=== PATIENT | male | born 1960 | race Caucasian/White ===

== ENCOUNTER 2018-02-28 14:38 | Emergency (ER) | payer OTHER, MEDICAID ==
[~2018-02-28] VITALS: Ht 167.6 cm; Wt 47.6 kg
[2018-02-28 14:38] VITALS: BP_SYST 117
[~2018-02-28 14:38] MED LIST: BUPR75TA20 PO; CEL20 PO; DIVA500T7 PO; GEMF600T3 PO; INSU100V9 SQ; LISI-600 PO; METH2.5T PO; RABE20TA18 PO; TOPI25TA13 PO; TRAZ-123 PO
[2018-02-28] MEDS ORDERED: NACL 0.9% 1,000 ML IV ONE (15:17)
[2018-02-28 15:30] LABS: BASOPHILS % (AUTO) 0.7 % (0.0-2.0); CALCIUM 8.6 mg/dL (8.4-11.0); CREATININE 1.07 mg/dL (0.55-1.30); EOSINOPHILS # (AUTO) 0.1 K/uL (0.0-0.4); EOSINOPHILS % (AUTO) 1.5 % (0.0-4.0); HEMATOCRIT 39.8 % (36-54); HEMOGLOBIN 13.2 g/dL (14.0-18.0); LYMPHOCYTES # (AUTO) 1.4 K/uL (1.0-5.5); MEAN CORPUSCULAR HEMOGLOBIN 32 pg (27-31); MEAN CORPUSCULAR HGB CONC 33 % (32-36); MEAN CORPUSCULAR VOLUME 97 fL (79.0-98.0); MONOCYTES # (AUTO) 0.8 K/uL (0.0-1.0); MONOCYTES % (AUTO) 13.8 % (1.7-9.3); NEUTROPHILS # (AUTO) 3.4 K/uL (1.8-7.7); PLATELET COUNT (AUTO) 207 K/uL (130-430); POTASSIUM 3.8 mmol/L (3.5-5.1); RED BLOOD CELL COUNT(AUTO) 4.12 MIL/uL (4.2-6.2); RED CELL DISTRIBUTION WIDTH 13.7 % (9.0-15.0); WHITE BLOOD COUNT (AUTO) 5.7 K/uL (4.8-10.8)
[2018-02-28] MEDS ORDERED: MORPHINE 4 MG/ML INJ. SYRINGE IVP ONE (15:30)
[2018-02-28] MEDS ORDERED: ONDANSETRON HCL 4 MG/2 ML VIAL IVP ONE (15:30)
[2018-02-28] MEDS ORDERED: DIPHENHYDRAMINE INJ 50 MG/ML VIAL IVP ONE (15:30)
[2018-02-28 15:36] LABS: ALBUMIN 3.3 g/dL (3.4-4.8); TOTAL BILIRUBIN 0.3 mg/dL (0.0-1.0)
[2018-02-28] MEDS ORDERED: MAGNESIUM CITRATE 300 ML ORAL SOLUTION PO ONE (16:45)
== END 2018-02-28 17:46 | disposition home or self-care (01) ==
LOC: SED 14:38
DX: K59.00 Constipation, unspecified (principal); E11.9 Type 2 diabetes mellitus without complications; K21.9 Gastro-esophageal reflux disease without esophagitis; I10 Essential (primary) hypertension; G40.909 Epilepsy, unspecified, not intractable, without status epilepticus; Z79.899 Other long term (current) drug therapy
CPT/HCPCS: 36415; 74018; 80053; 83690; 85025; 96374; 96375; 99285; J1200; J2270; J2405; J7030

== ENCOUNTER 2021-03-17 18:46 | Inpatient (IN) | payer OTHER, MEDICAID, SELFPAY ==
[~2021-03-17] VITALS: Ht 167.6 cm; Wt 60.0 kg
[~2021-03-17 18:46] MED LIST changes: +AMIT100T2 PO; +ASA81 PO; -BUPR75TA20 PO; +CARV25TA55 PO; -CEL20 PO; +DIVA-74 PO; -DIVA500T7 PO; +ESCI-6 PO; +FERR236T3 PO; +FOLI-43 PO; +GABA-529 PO; -GEMF600T3 PO; +HYDR-4272 PO; -INSU100V9 SQ; -LISI-600 PO; +LOPE2CAP PO; +MECL-160 PO; -METH2.5T PO; +NIFE30TA84 PO; +NITSL SL; +OMEP20CA15 PO; -RABE20TA18 PO; +SSREG SUBCUT; -TOPI25TA13 PO; -TRAZ-123 PO
[2021-03-17 18:51] VITALS: BP_SYST 103
--- NOTE | 2021-03-17 18:51 | NUR ---
Pt to bed 1 for evaluation. Report given to EDUARDO Sheikh who will assume care.
--- NOTE | 2021-03-17 18:54 | NUR ---
ER Dr. DEVRIES at bedside examining patient.
--- NOTE | 2021-03-17 18:55 | NUR ---
Note undone in EDM - 03/17/21 at 1900 by SDEDCJM # 20 gauge angiocath placed to RT HAND. Use of asceptic technique. Opsite placed over site. Blood return noted. Blood for lab drawn from site. Flushed with 10 cc of normal saline. No evidence of infiltration noted. Patient tolerated well.
--- NOTE | 2021-03-17 18:55 | NUR ---
# 20 gauge angiocath placed to right hand. Use of asceptic technique. Opsite placed over site. Blood return noted. Blood for lab drawn from site. Flushed with 10 cc of normal saline. No evidence of infiltration noted. Patient tolerated well.
--- NOTE | 2021-03-17 18:57 | NUR ---
PATIENT BROUGHT IN BLS FROM [facility] FOR ANEMIA. REPORT FROM EMS, PATIENT HAD DIALYSIS TODAY AND HEMOGLOBIN WAS 5.6. PATIENT ARRIVES WEAK, SLOW TO ANSWER QUESTIONS, SKIN IS PALE. PATIENT AOX3. HX OF ESRD, DM2, HYPERLIPIDEMIA, GERD, HX OF COVID PNA. DENIES ANY PAIN AT THIS TIME.
[2021-03-17 19:28] LABS: BASOPHILS % (AUTO) 0.5 % (0.0-2.0); EOSINOPHILS % (AUTO) 0.2 % (0.0-4.0); LYMPHOCYTES # (AUTO) 1.3 K/uL (1.0-5.5); LYMPHOCYTES % (AUTO) 23.9 % (20.5-51.5); MEAN CORPUSCULAR HEMOGLOBIN 34 pg (27-31); MEAN CORPUSCULAR HGB CONC 34 % (32-36); MEAN CORPUSCULAR VOLUME 100 fL (79.0-98.0); MONOCYTES # (AUTO) 0.9 K/uL (0.0-1.0); MONOCYTES % (AUTO) 16.8 % (1.7-9.3); NEUTROPHILS # (AUTO) 3.1 K/uL (1.8-7.7); NEUTROPHILS % (AUTO) 58.6 % (40.0-70.0); PLATELET COUNT (AUTO) 237 K/uL (130-430); RED CELL DISTRIBUTION WIDTH 17.2 % (9.0-15.0); WHITE BLOOD COUNT (AUTO) 5.2 K/uL (4.8-10.8)
[2021-03-17 19:37] LABS: CALCIUM 8.7 mg/dL (8.4-11.0); CREATININE 2.82 mg/dL (0.55-1.30)
[2021-03-17 19:40] LABS: POTASSIUM 2.8 mmol/L (3.5-5.1)
[2021-03-17 19:45] LABS: INR 1.2 (0.80-1.20); PROTHROMBIN TIME 12.7 SECS (9.5-12.5)
[2021-03-17 19:49] LABS: HEMOGLOBIN 5.8 g/dL (14.0-18.0)
[2021-03-17 19:57] LABS: ALBUMIN 2.2 g/dL (3.4-4.8); TOTAL BILIRUBIN 0.1 mg/dL (0.0-1.0)
[2021-03-17] MEDS ORDERED: POTASSIUM CHLORIDE 20 MEQ/PKT PACKET PO ONE (20:00)
--- NOTE | 2021-03-17 20:01 | NUR ---
PT ARRIVES WITH FULL CODE STATUS
--- NOTE | 2021-03-17 20:11 | NUR ---
BLOOD CONSENT SIGNED BY PATIENT AND MD. TRANSFUSION RECORDS AND CONSENT SENT TO LAB
--- NOTE | 2021-03-17 20:21 | NUR ---
Medication reconciliation completed with information provided by ILDA PUGH. Any prior medication reconciliation on file was reviewed and corrected.
[2021-03-17] MEDS ORDERED: HYDR-4039 PO (20:23)
[2021-03-17] MEDS ORDERED: PSYL575P22 PO (20:23)
[2021-03-17] MEDS ORDERED: ASCO500T20 PO (20:23)
[2021-03-17] MEDS ORDERED: CALC-823 PO (20:23)
[2021-03-17] MEDS ORDERED: FURO-149 PO (20:23)
[2021-03-17] MEDS ORDERED: OLAN10TA71 PO (20:33)
[2021-03-17] MEDS ORDERED: LACT1TAB21 PO (20:33)
[2021-03-17] MEDS ORDERED: BROM3DRO RIGHT EYE (20:33)
[2021-03-17] MEDS ORDERED: PRO40 PO (20:33)
[2021-03-17] MEDS ORDERED: MEGE400O4 PO (20:33)
--- NOTE | 2021-03-17 20:34 | NUR ---
PATIENT AWAKE AND TALKING, PLEASANT. NO VOICED COMPLAINTS AT THIS TIME.
--- NOTE | 2021-03-17 20:53 | NUR ---
Patient will be admitted to care of DR. HARRY. Admitted to MED SURG unit. Will go to room 112B. Belongings list completed. Complete and up to date summary report printed. SBAR GIVEN OVER PHONE
[2021-03-17 21:16] VITALS: BP_SYST 121
--- NOTE | 2021-03-17 21:16 | NUR ---
ADMISSION: The patient, MARK ANTHONY SANTOS, 60 y/o, M admitted by FREDDY HARRY MD, was given written information regarding hospital policies, unit procedures and contact persons. Valuables were checked and DOCUMENTED.
--- NOTE | 2021-03-17 21:30 | NUR ---
INITIAL NOTE AT INITIAL ASSESSMENT, PATIENT IS RESTING IN BED, STABLE, NO SIGNS OF RESPIRATORY DISTRESS. PATIENT VERBALIZES NO PAIN. PLAN OF CARE FOR THE EVENING IS COMMUNICATED WITH THE PATIENT. PATIENT DEMONSTRATES CORRECT USAGE OF CALL LIGHT AT THIS TIME. BED IS LOCKED, ALARMED, AND AT THE LOWEST LEVEL. FALL SAFETY EDUCATION PROVIDED. FALL, SAFETY, AND RESPIRATORY PRECAUTIONS WILL BE TAKEN THROUGHOUT THE SHIFT.
[2021-03-17] MEDS ORDERED: LOPERAMIDE HCL 2 MG CAPSULE PO PRN (22:15)
[2021-03-17] MEDS: CARVEDILOL 25 MG TABLET (COREG) PO SCH (22:15)
[2021-03-17] MEDS ORDERED: cloNIDine HCL 0.1 MG TABLET PO PRN (22:15)
[2021-03-17] MEDS: hydrALAZINE HCL 25 MG TABLET PO SCH (22:15)
[2021-03-17] MEDS ORDERED: NALOXONE HCL 0.4 MG/ML AMP (NARCAN) IVP PRN (22:15)
[2021-03-17] MEDS ORDERED: NITROGLYCERIN 0.4 MG TAB.SUBL SL PRN (22:15)
--- NOTE | 2021-03-17 22:45 | NUR ---
HYGIENE CARE NOTE HYGIENE CARE IS PROVIDED AT THIS TIME, FRESH LINENS PROVIDED, AND PATIENT IS REPOSITIONED FOR COMFORT. PATIENT TOLERATED WELL. CALL LIGHT PLACED WITHIN REACH. BED IS LOCKED, ALARMED, AND AT THE LOWEST LEVEL.
[2021-03-17 23:40] VITALS: BP_SYST 121
--- NOTE | 2021-03-17 23:40 | NUR ---
BT INITIATION: Consent signed per PATIENT agreeing to administration of blood. Blood has been type and crossmatched. Blood sent from blood bank. Information on unit of blood checked against patient wristband at bedside by two nurses. All information matches. Patient or responsible democrat informed of potential complications associated with blood transfusion. Informed of possible transfusion reaction symptoms. Aware of need to notify nurse at once of itching, shortness of breath, flushing, feeling of impending doom, or other symptoms not previously present. Vital signs taken within 5 minutes prior to initiation of transfusion. RN will remain with patient for first 15 minutes of transfusion at which time vital signs will be re-assessed.
--- NOTE | 2021-03-18 02:40 | NUR ---
BT INITIATION: Consent signed per PATIENT agreeing to administration of blood. Blood has been type and crossmatched. Blood sent from blood bank. Information on unit of blood checked against patient wristband at bedside by two nurses. All information matches. Patient or responsible constitution party informed of potential complications associated with blood transfusion. Informed of possible transfusion reaction symptoms. Aware of need to notify nurse at once of itching, shortness of breath, flushing, feeling of impending doom, or other symptoms not previously present. Vital signs taken within 5 minutes prior to initiation of transfusion. RN will remain with patient for first 15 minutes of transfusion at which time vital signs will be re-assessed.
[2021-03-18] MEDS: HYDROcodone/ACETAMIN 5-325 MG TAB (NORCO/ VICODIN) PO PRN ×2 (03:04→21:12)
[2021-03-18] MEDS: hydrALAZINE HCL 25 MG TABLET PO SCH ×3 (05:55→21:11)
[2021-03-18] MEDS: INSULIN REGULAR, HUMAN 100 UNITS/ML, 10 ML VIAL (humuLIN R) SUBCUT PRN ×4 (06:04→22:44)
--- NOTE | 2021-03-18 06:38 | NUR ---
CLOSING NOTE TWO UNITS OF PRBC GIVEN DURING THE SHIFT, PATIENT TOLERATED WELL WITH NO ADVERSE EFFECTS. BLOOD SUGAR CHECK THIS AM REQUIRED INSULIN COVERAGE PER SSI ORDERED BY MD. PATIENT SLEPT WELL THROUGHOUT THE SHIFT, NO SHORTNESS OF BREATH NOTED. AT THIS TIME, PATIENT IS RESTING IN BED, STABLE, NO SIGNS OF RESPIRATORY DISTRESS. CALL LIGHT IS WITHIN REACH. BED IS LOCKED, ALARMED, AND AT THE LOWEST LEVEL. FALL, SAFETY, AND RESPIRATORY PRECAUTIONS HAVE BEEN TAKEN THROUGHOUT THE SHIFT. WILL CONTINUE TO MONITOR UNTIL SHIFT REPORT IS GIVEN AT BEDSIDE TO AM NURSE.
[2021-03-18 07:49] LABS: CALCIUM 8.6 mg/dL (8.4-11.0); CREATININE 3.67 mg/dL (0.55-1.30); POTASSIUM 4.4 mmol/L (3.5-5.1)
[2021-03-18 08:00] VITALS: BP_SYST 144
[2021-03-18 08:23] LABS: BASOPHILS % (AUTO) 0.8 % (0.0-2.0); EOSINOPHILS % (AUTO) 0.4 % (0.0-4.0); HEMATOCRIT 26.9 % (36-54); HEMOGLOBIN 8.8 g/dL (14.0-18.0); LYMPHOCYTES # (AUTO) 1.7 K/uL (1.0-5.5); MEAN CORPUSCULAR HEMOGLOBIN 30 pg (27-31); MEAN CORPUSCULAR HGB CONC 33 % (32-36); MEAN CORPUSCULAR VOLUME 92 fL (79.0-98.0); MONOCYTES # (AUTO) 1.1 K/uL (0.0-1.0); MONOCYTES % (AUTO) 19.2 % (1.7-9.3); NEUTROPHILS # (AUTO) 2.8 K/uL (1.8-7.7); NEUTROPHILS % (AUTO) 49.6 % (40.0-70.0); PLATELET COUNT (AUTO) 214 K/uL (130-430); RED BLOOD CELL COUNT(AUTO) 2.93 MIL/uL (4.2-6.2); RED CELL DISTRIBUTION WIDTH 22.2 % (9.0-15.0); WHITE BLOOD COUNT (AUTO) 5.6 K/uL (4.8-10.8)
[2021-03-18 08:56] LABS: TOTAL IRON BIND. CAPACITY 154 ug/dL (250-450)
[2021-03-18] MEDS: CALCIUM CARBONATE/VITAMIN D3 1 TAB TABLET PO SCH ×2 (09:00→21:08)
[2021-03-18] MEDS: LACTOBACILLUS RHAMNOSUS GG 1 CAP CAPSULE PO SCH ×2 (09:00→21:08)
[2021-03-18] MEDS: PSYLLIUM HUSK 1 PKT PACKET PO SCH (09:00)
[2021-03-18] MEDS ORDERED: [UNRECOGNIZED DRUG - OTHER] PO SCH (09:00)
[2021-03-18] MEDS ORDERED: NON-FORMULARY MEDICATION (Lactobacillus Acidophilus (Acidophilus) 1 TAB) PO SCH (09:00)
--- NOTE | 2021-03-18 09:43 | NUR ---
Nutrition Update Agustin Scale 17 noted. Pt admitted for anemia. Diet: regular, renal BMI: 21.1 kg/m2 RD to follow per nutrition care standards.
[2021-03-18] MEDS: ASPIRIN 81 MG TAB.CHEW PO SCH (11:14)
[2021-03-18] MEDS: ASCORBIC ACID 500 MG TABLET PO SCH ×2 (11:14→21:08)
[2021-03-18] MEDS: GABAPENTIN 100 MG CAPSULE PO SCH (11:14)
[2021-03-18] MEDS: FOLIC ACID 1 MG TABLET PO SCH (11:14)
[2021-03-18] MEDS: MEGESTROL ACETATE 400 MG/10 ML UDC PO SCH ×2 (11:15→21:08)
[2021-03-18] MEDS: CARVEDILOL 25 MG TABLET (COREG) PO SCH ×2 (11:16→21:11)
[2021-03-18] MEDS: MECLIZINE HCL 25 MG TABLET (ANITVERT) PO SCH ×2 (11:16→21:07)
[2021-03-18] MEDS: FUROSEMIDE 40 MG TABLET PO SCH (11:17)
[2021-03-18] MEDS: PANTOPRAZOLE SODIUM 40 MG TAB PO SCH (11:18)
[2021-03-18 11:34] VITALS: BP_SYST 135
[2021-03-18 12:00] VITALS: BP_SYST 104
[2021-03-18 15:40] VITALS: BP_SYST 136
[2021-03-18 16:00] VITALS: BP_SYST 93
[2021-03-18 19:25] VITALS: BP_SYST 155
[2021-03-18] MEDS ORDERED: BROMFENAC SODIUM RIGHT EYE SCH (21:00)
[2021-03-18] MEDS: DIVALPROEX SODIUM 500 MG TABLET( DEPAKOTE) PO SCH (21:07)
[2021-03-18] MEDS: AMITRIPTYLINE HCL 25 MG TABLET (ELAVIL) PO SCH (21:07)
[2021-03-18] MEDS: OLANZapine 10 MG TABLET PO SCH (21:08)
--- NOTE | 2021-03-19 00:24 | NUR ---
CONSULTATION PAGED/CALLED Reason for Consultation: ESRF Person Who was Notified: FABIO Consulting Physician: YURI Facilities Assistant Specialty: Ordering Physician: PIERO
[2021-03-19 00:51] VITALS: BP_SYST 120
--- NOTE | 2021-03-19 06:20 | NUR ---
CLOSING NOTE PATIENT STATES HE FEELS BETTER TONIGHT. BLOOD SUGAR CHECK THIS AM REQUIRED NO INSULIN COVERAGE PER SSI ORDERED BY MD. PATIENT SLEPT WELL THROUGHOUT THE SHIFT, NO SHORTNESS OF BREATH NOTED. AT THIS TIME, PATIENT IS RESTING IN BED, STABLE, NO SIGNS OF RESPIRATORY DISTRESS. CALL LIGHT IS WITHIN REACH. BED IS LOCKED, ALARMED, AND AT THE LOWEST LEVEL. FALL, SAFETY, AND RESPIRATORY PRECAUTIONS HAVE BEEN TAKEN THROUGHOUT THE SHIFT. WILL CONTINUE TO MONITOR UNTIL SHIFT REPORT IS GIVEN AT BEDSIDE TO AM NURSE.
[2021-03-19] MEDS: hydrALAZINE HCL 25 MG TABLET PO SCH ×3 (06:25→20:58)
--- NOTE | 2021-03-19 07:51 | NUR ---
Initial notes Awake and oriented, eating breakfast, denies any pain or shortness of breath. safety precaution observed, call light within reach. Enc to call for help as needed. Verbalize understanding
[2021-03-19 07:54] VITALS: BP_SYST 130
[2021-03-19 08:07] LABS: FOLATE (FOLIC ACID) >20.0 ng/mL (>3.0)
[2021-03-19] MEDS: MEGESTROL ACETATE 400 MG/10 ML UDC PO SCH ×2 (08:08→20:56)
[2021-03-19] MEDS: ASCORBIC ACID 500 MG TABLET PO SCH ×2 (08:09→20:57)
[2021-03-19] MEDS: GABAPENTIN 100 MG CAPSULE PO SCH (08:09)
[2021-03-19] MEDS: CARVEDILOL 25 MG TABLET (COREG) PO SCH ×2 (08:09→20:57)
[2021-03-19] MEDS: PSYLLIUM HUSK 1 PKT PACKET PO SCH (08:09)
[2021-03-19] MEDS: MECLIZINE HCL 25 MG TABLET (ANITVERT) PO SCH ×2 (08:09→20:57)
[2021-03-19] MEDS: ASPIRIN 81 MG TAB.CHEW PO SCH (08:09)
[2021-03-19] MEDS: FOLIC ACID 1 MG TABLET PO SCH (08:09)
[2021-03-19] MEDS: FUROSEMIDE 40 MG TABLET PO SCH (08:10)
[2021-03-19] MEDS: CALCIUM CARBONATE/VITAMIN D3 1 TAB TABLET PO SCH ×2 (08:10→20:56)
[2021-03-19] MEDS: PANTOPRAZOLE SODIUM 40 MG TAB PO SCH (08:10)
[2021-03-19] MEDS: LACTOBACILLUS RHAMNOSUS GG 1 CAP CAPSULE PO SCH ×2 (08:10→20:56)
[2021-03-19 11:17] LABS: CALCIUM 8.3 mg/dL (8.4-11.0); CREATININE 5.29 mg/dL (0.55-1.30); POTASSIUM 3.7 mmol/L (3.5-5.1)
[2021-03-19] MEDS: INSULIN REGULAR, HUMAN 100 UNITS/ML, 10 ML VIAL (humuLIN R) SUBCUT PRN ×3 (11:30→21:10)
[2021-03-19 11:46] VITALS: BP_SYST 132
--- NOTE | 2021-03-19 12:00 | NUR ---
Notes sitting at the edge of the bed, eating lunch. No distress.
[2021-03-19] MEDS: DIVALPROEX SODIUM 500 MG TABLET( DEPAKOTE) PO SCH ×2 (12:42→20:57)
--- NOTE | 2021-03-19 15:13 | NUR ---
Notes Resting in bed, denies any pain or discomfort. Seen by Dr. Alfaro, will monitor.
[2021-03-19 15:30] VITALS: BP_SYST 134
--- NOTE | 2021-03-19 17:46 | NUR ---
Notes Patient is having dialysis at this time.
--- NOTE | 2021-03-19 19:30 | NUR ---
OPENING NOTE RECEIVED REPORT FROM DAY RN. PT LAYING IN BED WITH RESPIRATIONS EVEN AND UNLABORED. NO SIGNS OF DISTRESS NOTED. CALL LIGHT WITHIN REACH. BED IN LOWEST AND LOCKED POSITION, SAFETY PRECAUTIONS IN PLACE. WILL CONTINUE TO MONITOR.
--- NOTE | 2021-03-19 19:42 | NUR ---
DIALYSIS AT BEDSIDE NO SIGNS OF DISTRESS NOTED.
[2021-03-19 20:00] VITALS: BP_SYST 134
[2021-03-19] MEDS: OLANZapine 10 MG TABLET PO SCH (20:56)
[2021-03-19] MEDS: AMITRIPTYLINE HCL 25 MG TABLET (ELAVIL) PO SCH (20:57)
--- NOTE | 2021-03-19 22:11 | NUR ---
PT REQUESTING FOOD TURKEY SANDWICH GIVEN TO PT.
[2021-03-20] VITALS: BP_SYST 134
[2021-03-20] MEDS: HYDROcodone/ACETAMIN 5-325 MG TAB (NORCO/ VICODIN) PO PRN (02:03)
--- NOTE | 2021-03-20 02:36 | NUR ---
ROUNDS PT LAYING IN BED WITH EYES CLOSED. RESPIRATIONS EVEN AND UNLABORED. NO SIGNS OF DISTRESS NOTED. SAFETY PRECAUTIONS IN PLACE. WILL CONTINUE TO MONITOR. Addendum: 03/21/21 at 0557 by Silvina Crawford RN FOR 03/21/21
[2021-03-20] MEDS: hydrALAZINE HCL 25 MG TABLET PO SCH ×3 (06:14→21:13)
[2021-03-20] MEDS: INSULIN REGULAR, HUMAN 100 UNITS/ML, 10 ML VIAL (humuLIN R) SUBCUT PRN ×4 (06:20→21:20)
[2021-03-20 06:55] LABS: HEMATOCRIT 27.8 % (36-54); HEMOGLOBIN 9.2 g/dL (14.0-18.0); LYMPHOCYTES # (AUTO) 1.4 K/uL (1.0-5.5); LYMPHOCYTES % (AUTO) 26.7 % (20.5-51.5); MEAN CORPUSCULAR HEMOGLOBIN 31 pg (27-31); MEAN CORPUSCULAR HGB CONC 33 % (32-36); MEAN CORPUSCULAR VOLUME 93 fL (79.0-98.0); MONOCYTES # (AUTO) 0.9 K/uL (0.0-1.0); MONOCYTES % (AUTO) 16.4 % (1.7-9.3); NEUTROPHILS # (AUTO) 2.9 K/uL (1.8-7.7); NEUTROPHILS % (AUTO) 55.4 % (40.0-70.0); PLATELET COUNT (AUTO) 240 K/uL (130-430); RED BLOOD CELL COUNT(AUTO) 3.01 MIL/uL (4.2-6.2); RED CELL DISTRIBUTION WIDTH 22.3 % (9.0-15.0); WHITE BLOOD COUNT (AUTO) 5.2 K/uL (4.8-10.8)
[2021-03-20 07:43] LABS: CALCIUM 8.3 mg/dL (8.4-11.0); CREATININE 4.09 mg/dL (0.55-1.30); POTASSIUM 4.2 mmol/L (3.5-5.1)
[2021-03-20 08:00] VITALS: BP_SYST 140
--- NOTE | 2021-03-20 08:00 | NUR ---
Initial notes Awake and oriented, denies any pain or discomfort. sitting at the edge of the bed eating breakfast. Enc to call for help as needed. Call light within reach.
[2021-03-20] MEDS: CALCIUM CARBONATE/VITAMIN D3 1 TAB TABLET PO SCH ×2 (08:18→21:13)
[2021-03-20] MEDS: ASCORBIC ACID 500 MG TABLET PO SCH ×2 (08:18→21:12)
[2021-03-20] MEDS: MECLIZINE HCL 25 MG TABLET (ANITVERT) PO SCH ×2 (08:18→21:12)
[2021-03-20] MEDS: PANTOPRAZOLE SODIUM 40 MG TAB PO SCH (08:18)
[2021-03-20] MEDS: ASPIRIN 81 MG TAB.CHEW PO SCH (08:18)
[2021-03-20] MEDS: PSYLLIUM HUSK 1 PKT PACKET PO SCH (08:18)
[2021-03-20] MEDS: DIVALPROEX SODIUM 500 MG TABLET( DEPAKOTE) PO SCH ×2 (08:18→21:12)
[2021-03-20] MEDS: MEGESTROL ACETATE 400 MG/10 ML UDC PO SCH ×2 (08:18→21:11)
[2021-03-20] MEDS: GABAPENTIN 100 MG CAPSULE PO SCH (08:18)
[2021-03-20] MEDS: LACTOBACILLUS RHAMNOSUS GG 1 CAP CAPSULE PO SCH ×2 (08:19→21:12)
[2021-03-20] MEDS: FOLIC ACID 1 MG TABLET PO SCH (08:19)
[2021-03-20] MEDS: FUROSEMIDE 40 MG TABLET PO SCH (08:19)
[2021-03-20] MEDS: CARVEDILOL 25 MG TABLET (COREG) PO SCH ×2 (08:20→21:12)
[2021-03-20 08:36] LABS: BASOPHILS % (AUTO) 0.4 % (0.0-2.0); EOSINOPHILS # (AUTO) 0.1 K/uL (0.0-0.4); EOSINOPHILS % (AUTO) 1.1 % (0.0-4.0)
[2021-03-20 11:27] VITALS: BP_SYST 108
--- NOTE | 2021-03-20 12:00 | NUR ---
Notes Eating lunch, denies any pain or discomfort. no distress noted
[2021-03-20 15:32] VITALS: BP_SYST 111
--- NOTE | 2021-03-20 16:00 | NUR ---
NOTES Watching tv, no complaints. call light within reach
--- NOTE | 2021-03-20 18:16 | NUR ---
closing notes sitting at the edge of the bed, eating dinner. has very good appetite. denies any pain. No distress.
--- NOTE | 2021-03-20 19:30 | NUR ---
OPENING NOTE RECEIVED REPORT FROM DAY RN. PT PATIENT IN BED WITH EYES CLOSES. RESPIRATIONS EVEN AND UNLABORED ON RA. NO SIGNS OF DISTRESS NOTED. BED IN LOWEST AND LOCKED POSITION. CALL LIGHT WITHIN REACH. SAFETY PRECAUTIONS IN PLACE. WILL CONTINUE TO MONITOR.
[2021-03-20 20:00] VITALS: BP_SYST 113
--- NOTE | 2021-03-20 20:31 | NUR ---
BLOOD SUGAR 300. INSULIN ADMINISTERED PER SLIDING SCALE ORDER. PT TOLERATED WELL.
[2021-03-20] MEDS: OLANZapine 10 MG TABLET PO SCH (21:13)
[2021-03-20] MEDS: AMITRIPTYLINE HCL 25 MG TABLET (ELAVIL) PO SCH (21:13)
[2021-03-21 00:29] VITALS: BP_SYST 140
--- NOTE | 2021-03-21 02:11 | NUR ---
ROUNDS PT LAYING IN BED WITH EYES CLOSED. RESPIRATIONS EVEN AND UNLABORED ON RA. NO SIGNS OF DISTRESS NOTED. SAFETY PRECAUTIONS IN PLACE. WILL CONTINUE TO MONITOR.
[2021-03-21] MEDS: INSULIN REGULAR, HUMAN 100 UNITS/ML, 10 ML VIAL (humuLIN R) SUBCUT PRN ×2 (06:22→11:40)
[2021-03-21] MEDS: hydrALAZINE HCL 25 MG TABLET PO SCH ×2 (06:24→15:05)
[2021-03-21 06:25] VITALS: BP_SYST 142
--- NOTE | 2021-03-21 06:31 | NUR ---
CLOSING NOTE PATIENT LAYING IN BED WITH EYES CLOSED. RESPIRATIONS EVEN AND UNLABORED ON RA. NO SIGNS OF DISTRESS NOTED. RIGHT FA IV 20G PATENT AND INTACT. FLUSHES WELL. SALINE LOCKED. SAFETY PRECAUTIONS IN PLACE. ALL NEEDS MET THROUGHOUT THE NIGHT. WILL ENDORSE TO DAY RN.
[2021-03-21 07:03] LABS: BASOPHILS % (AUTO) 0.7 % (0.0-2.0); EOSINOPHILS # (AUTO) 0.1 K/uL (0.0-0.4); EOSINOPHILS % (AUTO) 0.9 % (0.0-4.0); HEMATOCRIT 27.6 % (36-54); HEMOGLOBIN 9.3 g/dL (14.0-18.0); LYMPHOCYTES % (AUTO) 33.7 % (20.5-51.5); MEAN CORPUSCULAR HEMOGLOBIN 31 pg (27-31); MEAN CORPUSCULAR HGB CONC 34 % (32-36); MEAN CORPUSCULAR VOLUME 93 fL (79.0-98.0); MONOCYTES # (AUTO) 0.9 K/uL (0.0-1.0); MONOCYTES % (AUTO) 15.2 % (1.7-9.3); NEUTROPHILS # (AUTO) 2.9 K/uL (1.8-7.7); NEUTROPHILS % (AUTO) 49.5 % (40.0-70.0); PLATELET COUNT (AUTO) 244 K/uL (130-430); RED BLOOD CELL COUNT(AUTO) 2.98 MIL/uL (4.2-6.2); RED CELL DISTRIBUTION WIDTH 21.4 % (9.0-15.0); WHITE BLOOD COUNT (AUTO) 5.8 K/uL (4.8-10.8)
[2021-03-21 07:21] LABS: CALCIUM 8.7 mg/dL (8.4-11.0); CREATININE 5.73 mg/dL (0.55-1.30); POTASSIUM 4.6 mmol/L (3.5-5.1)
--- NOTE | 2021-03-21 07:25 | NUR ---
MORNING ROUNDS: PATIENT RESTING DURING ROUNDS. IV SALINE LOCK AT RIGHT FOREARM INTACT. LEFT UPPER ARM AV SHUNT,DRESSING CLEAN AND DRY. CALL LIGHT WITH IN REACH. BED LOCKED AT LOWEST POSITION. BED ALARM ON.NO ACUTE DISTRESS.
[2021-03-21 08:15] VITALS: BP_SYST 130
[2021-03-21] MEDS: FOLIC ACID 1 MG TABLET PO SCH (10:17)
[2021-03-21] MEDS: ASPIRIN 81 MG TAB.CHEW PO SCH (10:17)
[2021-03-21] MEDS: CARVEDILOL 25 MG TABLET (COREG) PO SCH (10:17)
[2021-03-21] MEDS: FUROSEMIDE 40 MG TABLET PO SCH (10:17)
[2021-03-21] MEDS: CALCIUM CARBONATE/VITAMIN D3 1 TAB TABLET PO SCH (10:18)
[2021-03-21] MEDS: GABAPENTIN 100 MG CAPSULE PO SCH (10:18)
[2021-03-21] MEDS: ASCORBIC ACID 500 MG TABLET PO SCH (10:18)
[2021-03-21] MEDS: MEGESTROL ACETATE 400 MG/10 ML UDC PO SCH (10:18)
[2021-03-21] MEDS: LACTOBACILLUS RHAMNOSUS GG 1 CAP CAPSULE PO SCH (10:18)
[2021-03-21] MEDS: MECLIZINE HCL 25 MG TABLET (ANITVERT) PO SCH (10:18)
[2021-03-21] MEDS: PSYLLIUM HUSK 1 PKT PACKET PO SCH (10:18)
[2021-03-21] MEDS: PANTOPRAZOLE SODIUM 40 MG TAB PO SCH (10:18)
[2021-03-21] MEDS: DIVALPROEX SODIUM 500 MG TABLET( DEPAKOTE) PO SCH (10:26)
[2021-03-21 11:28] VITALS: BP_SYST 118
--- NOTE | 2021-03-21 11:30 | NUR ---
TRANSFER ROOM: TRANSFERRED TO ROOM [facility]-A IN STABLE CONDITION.
--- NOTE | 2021-03-21 12:40 | NUR ---
DISCHARGE PLANNING Called & discussed dc planning with Dr Luz, gave ph order for dc back to [facility]. Pt [facility] at [facility], faxed order/pt info to [facility]. Spoke with pt at bedside and agreeable with dc back to [facility] today, states to call & notify friend Luz Marina Alda. Called & informed Luz Marina, ph [phone], agreeable with plan. Addendum: 03/21/21 at 1343 by Michaelle Mccabe RN Received call back from Cassius at [facility], pt accepted back to room 5A, #for report [phone]. [facility] picking up pt bet 4pm & 430pm, ph [phone]. Updated pt's nurse. packet to [facility].
[2021-03-21 15:09] VITALS: BP_SYST 118; BP_SYST 120
[2021-03-21 15:35] VITALS: BP_SYST 120
--- NOTE | 2021-03-21 16:58 | NUR ---
REPORT: REPORT GIVEN TO RAMIRO Plata RN FROM [facility].
--- NOTE | 2021-03-21 17:40 | NUR ---
Transfer Notes: Transfer packets given to [facility] unit #[id number].Personal belongings given as well. Iv right forearm saline lock per [facility] staff Casey,to keep it prior to discharge. Left forearm AV Shunt intact. [facility] ambulance transported patient back to [facility] in stable condition.
[2021-03-21] MEDS ORDERED: KETOROLAC TROMETHAMINE 0.5% OP SCH (21:00)
[2021-03-21] MEDS ORDERED: EYE OP SCH (21:00)
[2021-03-31 13:20] LABS: FERRITIN 961 ng/mL (30-400)
== END 2021-03-21 17:35 | DRG 811 ==
LOC: SED 18:46 → SMU 19:58
PROVIDERS: ADMIT Family Medicine; ATTEND Family Medicine
PROC: 30233N1 Transfusion of Nonautologous Red Blood Cells into Peripheral Vein, Percutaneous Approach (ICD-10-PCS; principal; 2021-03-17)
PROC: 5A1D70Z Performance of Urinary Filtration, Intermittent, Less than 6 Hours Per Day (ICD-10-PCS; 2021-03-19)
DX: D64.9 Anemia, unspecified (principal); N18.6 End stage renal disease; I12.0 Hypertensive chronic kidney disease with stage 5 chronic kidney disease or end stage renal disease; E11.22 Type 2 diabetes mellitus with diabetic chronic kidney disease; K21.9 Gastro-esophageal reflux disease without esophagitis; M06.9 Rheumatoid arthritis, unspecified; G40.909 Epilepsy, unspecified, not intractable, without status epilepticus; H54.8 Legal blindness, as defined in USA; Z20.822 Contact with and (suspected) exposure to COVID-19; Z91.040 Latex allergy status; Z79.82 Long term (current) use of aspirin; Z79.899 Other long term (current) drug therapy; Z99.2 Dependence on renal dialysis
CPT/HCPCS: 36415; 36430; 71045; 80048; 80053; 82150; 82607; 82728; 82746; 82962; 83540; 83550; 83690; 85025; 85610-TC; 85730-TC; 86886; 86900; 86901; 86920; 87081; 90935; 93005; 99291; J1815; J8597; P9021

== ENCOUNTER 2021-04-01 09:19 | Inpatient (IN) | payer OTHER, MEDICAID, SELFPAY ==
[~2021-04-01] VITALS: Ht 170.2 cm; Wt 67.6 kg
[~2021-04-01 09:19] MED LIST changes: +ASCO500T20 PO; +BROM3DRO RIGHT EYE; +CALC-823 PO; -ESCI-6 PO; -FERR236T3 PO; +FURO-149 PO; +HYDR-4039 PO; +LACT1TAB21 PO; +MEGE400O4 PO; -NIFE30TA84 PO; +OLAN10TA71 PO; -OMEP20CA15 PO; +PRO40 PO; +PSYL575P22 PO
[2021-04-01 09:30] VITALS: BP_SYST 92
[2021-04-01] MEDS ORDERED: KETOROLAC TROMETHAMINE 0.5% OP PRN (10:00)
[2021-04-01] MEDS ORDERED: EYE OP PRN (10:00)
[2021-04-01 10:17] LABS: BASOPHILS % (AUTO) 0.2 % (0.0-2.0); EOSINOPHILS % (AUTO) 0.1 % (0.0-4.0); HEMATOCRIT 24.6 % (36-54); LYMPHOCYTES # (AUTO) 2.3 K/uL (1.0-5.5); LYMPHOCYTES % (AUTO) 9.4 % (20.5-51.5); MEAN CORPUSCULAR HEMOGLOBIN 31 pg (27-31); MEAN CORPUSCULAR HGB CONC 33 % (32-36); MEAN CORPUSCULAR VOLUME 96 fL (79.0-98.0); MONOCYTES # (AUTO) 1.7 K/uL (0.0-1.0); MONOCYTES % (AUTO) 6.8 % (1.7-9.3); NEUTROPHILS # (AUTO) 20.4 K/uL (1.8-7.7); PLATELET COUNT (AUTO) 206 K/uL (130-430); RED BLOOD CELL COUNT(AUTO) 2.57 MIL/uL (4.2-6.2); WHITE BLOOD COUNT (AUTO) 24.4 K/uL (4.8-10.8)
[2021-04-01 10:27] LABS: INR 1.2 (0.80-1.20); PROTHROMBIN TIME 12.4 SECS (9.5-12.5)
[2021-04-01 10:29] LABS: BILIRUBIN,URINE NEGATIVE (NEGATIVE); BLOOD, URINE NEGATIVE (NEGATIVE); COLOR,URINE YELLOW (YELLOW); GLUCOSE,URINE 2+ (NEGATIVE); KETONES,URINE NEGATIVE (NEGATIVE); LEUKOCYTE ESTERASE ,URINE NEGATIVE (NEGATIVE); NITRITE, URINE NEGATIVE (NEGATIVE); PH,URINE 8.5 (5.0-8.0); PROTEIN URINE 3+ (NEGATIVE); UROBILINOGEN,URINE 0.2 (0.2-1.0)
[2021-04-01 10:32] LABS: CREATININE 4.48 mg/dL (0.55-1.30)
[2021-04-01 10:33] LABS: ALBUMIN 2.2 g/dL (3.4-4.8); TOTAL BILIRUBIN 0.3 mg/dL (0.0-1.0)
[2021-04-01 10:34] LABS: CLARITY/URINE SLIGHTLY HAZY (CLEAR)
[2021-04-01] MEDS ORDERED: AZITHROMYCIN 500 MG in NS 250 ML IV ONE (10:45)
[2021-04-01] MEDS ORDERED: cefTRIAXone 1 GM IVPB PREMIX 50 ML IV ONE ×2 (10:45→21:38)
[2021-04-01] MEDS ORDERED: AZITHROMYCIN 500 MG/VIAL (ZITHROMAX) IV ONE ×2 (10:53→21:38)
[2021-04-01 10:57] LABS: BACTERIA,URINE FEW /HPF (None Seen); RBC,URINE 0-3 /HPF (0-3); WBC,URINE 0-3 /HPF (0-3)
[2021-04-01 10:58] LABS: MUCUS,URINE 1+ /LPF (None Seen)
[2021-04-01] MEDS ORDERED: ASPIRIN 325 MG TABLET PO ONE (11:15)
[2021-04-01] MEDS ORDERED: IPRATROPIUM/ALBUTEROL SULFATE 3 ML AMPUL.NEB (DUONEB) INH ONE (11:45)
[2021-04-01] MEDS ORDERED: OSELTAMIVIR PHOSPHATE 75 MG CAPSULE PO ONE (11:45)
[2021-04-01] MEDS: 0.45% NACL 1,000 ML IV SCH (12:21)
[2021-04-01 14:35] LABS: NEUTROPHILS % (AUTO) 83.5 % (40.0-70.0)
[2021-04-01 14:36] LABS: RED CELL DISTRIBUTION WIDTH 25.4 % (9.0-15.0)
[2021-04-01 15:52] VITALS: BP_SYST 112
[2021-04-01 16:41] VITALS: BP_SYST 112
[2021-04-01] MEDS ORDERED: INSULIN REGULAR, HUMAN 100 UNITS/ML, 10 ML VIAL (humuLIN R) SUBCUT PRN (17:30)
[2021-04-01] MEDS ORDERED: NALOXONE HCL 0.4 MG/ML AMP (NARCAN) IVP PRN (17:30)
[2021-04-01] MEDS ORDERED: ACETAMINOPHEN 325 MG TABLET PO PRN (17:30)
[2021-04-01] MEDS ORDERED: NITROGLYCERIN 0.4 MG TAB.SUBL SL PRN (17:30)
[2021-04-01] MEDS ORDERED: LOPERAMIDE HCL 2 MG CAPSULE PO SCH (17:30)
[2021-04-01 19:00] VITALS: BP_SYST 150
[2021-04-01 20:00] VITALS: BP_SYST 150
[2021-04-01] MEDS ORDERED: NON-FORMULARY MEDICATION (Lactobacillus Acidophilus (Acidophilus) 1 TAB) PO SCH (21:00)
[2021-04-01] MEDS: MECLIZINE HCL 25 MG TABLET (ANITVERT) PO SCH (21:36)
[2021-04-01] MEDS: AMITRIPTYLINE HCL 25 MG TABLET (ELAVIL) PO SCH (21:36)
[2021-04-01] MEDS: DIVALPROEX SODIUM 500 MG TABLET( DEPAKOTE) PO SCH (21:36)
[2021-04-01] MEDS: CALCIUM CARBONATE/VITAMIN D3 1 TAB TABLET PO SCH (21:37)
[2021-04-01] MEDS: MEGESTROL ACETATE 400 MG/10 ML UDC PO SCH (21:37)
[2021-04-01] MEDS: ASCORBIC ACID 500 MG TABLET PO SCH (21:38)
[2021-04-01] MEDS: OLANZapine 10 MG TABLET PO SCH (21:38)
[2021-04-01] MEDS: OSELTAMIVIR PHOSPHATE 75 MG CAPSULE PO SCH (21:38)
[2021-04-01] MEDS: CARVEDILOL 25 MG TABLET (COREG) PO SCH (21:39)
[2021-04-01] MEDS: cefTRIAXone 1 GM in D5W 50 ML IV SCH (21:51)
[2021-04-01] MEDS: AZITHROMYCIN 500 MG in NS 250 ML IV SCH (21:51)
[2021-04-01] MEDS: INSULIN REGULAR, HUMAN 100 UNITS/ML, 10 ML VIAL (humuLIN R) SUBCUT PRN (21:55)
[2021-04-02 00:30] VITALS: BP_SYST 120
[2021-04-02] MEDS: hydrALAZINE HCL 25 MG TABLET PO SCH ×4 (00:51→21:00)
[2021-04-02 04:00] VITALS: BP_SYST 136
[2021-04-02 08:06] VITALS: BP_SYST 150
[2021-04-02] MEDS: FUROSEMIDE 40 MG TABLET PO SCH (09:00)
[2021-04-02] MEDS: PSYLLIUM HUSK 1 PKT PACKET PO SCH (09:00)
[2021-04-02] MEDS: DIVALPROEX SODIUM 500 MG TABLET( DEPAKOTE) PO SCH ×2 (09:00→20:54)
[2021-04-02] MEDS: MECLIZINE HCL 25 MG TABLET (ANITVERT) PO SCH ×2 (09:00→20:53)
[2021-04-02] MEDS: CARVEDILOL 25 MG TABLET (COREG) PO SCH ×2 (09:00→20:54)
[2021-04-02] MEDS: CALCIUM CARBONATE/VITAMIN D3 1 TAB TABLET PO SCH ×2 (09:00→20:52)
[2021-04-02] MEDS: MEGESTROL ACETATE 400 MG/10 ML UDC PO SCH ×2 (09:00→20:52)
[2021-04-02] MEDS: LACTOBACILLUS RHAMNOSUS GG 1 CAP CAPSULE PO SCH ×2 (09:00→20:53)
[2021-04-02] MEDS: ASCORBIC ACID 500 MG TABLET PO SCH ×2 (09:00→20:54)
[2021-04-02 09:09] LABS: CALCIUM 8.3 mg/dL (8.4-11.0); CREATININE 5.42 mg/dL (0.55-1.30); POTASSIUM 3.5 mmol/L (3.5-5.1)
[2021-04-02 09:13] LABS: BASOPHILS # (AUTO) 0.1 K/uL (0.0-0.2); BASOPHILS % (AUTO) 0.4 % (0.0-2.0); EOSINOPHILS % (AUTO) 0.2 % (0.0-4.0); HEMOGLOBIN 7.6 g/dL (14.0-18.0); LYMPHOCYTES # (AUTO) 1.5 K/uL (1.0-5.5); MEAN CORPUSCULAR HEMOGLOBIN 31 pg (27-31); MEAN CORPUSCULAR HGB CONC 33 % (32-36); MEAN CORPUSCULAR VOLUME 95 fL (79.0-98.0); MONOCYTES # (AUTO) 1.1 K/uL (0.0-1.0); MONOCYTES % (AUTO) 7.2 % (1.7-9.3); NEUTROPHILS # (AUTO) 12.6 K/uL (1.8-7.7); NEUTROPHILS % (AUTO) 82.2 % (40.0-70.0); PLATELET COUNT (AUTO) 183 K/uL (130-430); RED BLOOD CELL COUNT(AUTO) 2.41 MIL/uL (4.2-6.2); RED CELL DISTRIBUTION WIDTH 24.9 % (9.0-15.0); WHITE BLOOD COUNT (AUTO) 15.4 K/uL (4.8-10.8)
[2021-04-02 12:00] VITALS: BP_SYST 145
[2021-04-02] MEDS: OSELTAMIVIR PHOSPHATE 75 MG CAPSULE PO SCH ×2 (14:03→20:52)
[2021-04-02] MEDS: FOLIC ACID 1 MG TABLET PO SCH (14:03)
[2021-04-02] MEDS: PANTOPRAZOLE SODIUM 40 MG TAB PO SCH (14:03)
[2021-04-02] MEDS: ASPIRIN 81 MG TAB.CHEW PO SCH (14:03)
[2021-04-02] MEDS: GABAPENTIN 100 MG CAPSULE PO SCH (14:03)
[2021-04-02] MEDS: HYDROcodone/ACETAMIN 5-325 MG TAB (NORCO/ VICODIN) PO PRN (14:11)
[2021-04-02 16:50] VITALS: BP_SYST 147
[2021-04-02] MEDS: INSULIN REGULAR, HUMAN 100 UNITS/ML, 10 ML VIAL (humuLIN R) SUBCUT PRN ×2 (17:40→21:13)
[2021-04-02] MEDS: cefTRIAXone 1 GM in D5W 50 ML IV SCH (17:42)
[2021-04-02] MEDS: AZITHROMYCIN 500 MG in NS 250 ML IV SCH (17:45)
[2021-04-02 19:20] VITALS: BP_SYST 118
[2021-04-02] MEDS: 0.45% NACL 1,000 ML IV SCH (20:49)
[2021-04-02] MEDS: OLANZapine 10 MG TABLET PO SCH (20:53)
[2021-04-02] MEDS: AMITRIPTYLINE HCL 25 MG TABLET (ELAVIL) PO SCH (20:53)
[2021-04-03] VITALS: BP_SYST 122
[2021-04-03] MEDS: 0.45% NACL 1,000 ML IV SCH ×2 (03:45→16:18)
[2021-04-03] MEDS: HYDROcodone/ACETAMIN 5-325 MG TAB (NORCO/ VICODIN) PO PRN (04:00)
[2021-04-03] MEDS: hydrALAZINE HCL 25 MG TABLET PO SCH ×3 (06:43→20:47)
[2021-04-03 08:00] VITALS: BP_SYST 149
[2021-04-03] MEDS: MEGESTROL ACETATE 400 MG/10 ML UDC PO SCH ×2 (09:43→20:44)
[2021-04-03] MEDS: LACTOBACILLUS RHAMNOSUS GG 1 CAP CAPSULE PO SCH ×2 (09:43→20:46)
[2021-04-03] MEDS: FUROSEMIDE 40 MG TABLET PO SCH (09:43)
[2021-04-03] MEDS: ASCORBIC ACID 500 MG TABLET PO SCH ×2 (09:43→20:46)
[2021-04-03] MEDS: OSELTAMIVIR PHOSPHATE 75 MG CAPSULE PO SCH ×2 (09:44→20:45)
[2021-04-03] MEDS: CARVEDILOL 25 MG TABLET (COREG) PO SCH ×2 (09:44→20:46)
[2021-04-03] MEDS: DIVALPROEX SODIUM 500 MG TABLET( DEPAKOTE) PO SCH ×2 (09:44→20:45)
[2021-04-03] MEDS: ASPIRIN 81 MG TAB.CHEW PO SCH (09:45)
[2021-04-03] MEDS: MECLIZINE HCL 25 MG TABLET (ANITVERT) PO SCH ×2 (09:45→20:46)
[2021-04-03] MEDS: CALCIUM CARBONATE/VITAMIN D3 1 TAB TABLET PO SCH ×2 (09:45→20:47)
[2021-04-03] MEDS: GABAPENTIN 100 MG CAPSULE PO SCH (09:45)
[2021-04-03] MEDS: PANTOPRAZOLE SODIUM 40 MG TAB PO SCH (09:45)
[2021-04-03] MEDS: PSYLLIUM HUSK 1 PKT PACKET PO SCH (09:46)
[2021-04-03] MEDS: FOLIC ACID 1 MG TABLET PO SCH (09:46)
[2021-04-03 12:00] VITALS: BP_SYST 135
[2021-04-03] MEDS: INSULIN REGULAR, HUMAN 100 UNITS/ML, 10 ML VIAL (humuLIN R) SUBCUT PRN ×3 (12:22→21:20)
[2021-04-03 16:00] VITALS: BP_SYST 136
[2021-04-03] MEDS: cefTRIAXone 1 GM in D5W 50 ML IV SCH (16:57)
[2021-04-03] MEDS: AZITHROMYCIN 500 MG in NS 250 ML IV SCH (16:58)
[2021-04-03 19:20] VITALS: BP_SYST 161
[2021-04-03] MEDS: AMITRIPTYLINE HCL 25 MG TABLET (ELAVIL) PO SCH (20:45)
[2021-04-03] MEDS: OLANZapine 10 MG TABLET PO SCH (20:45)
[2021-04-04] VITALS: BP_SYST 135
[2021-04-04] MEDS: INSULIN REGULAR, HUMAN 100 UNITS/ML, 10 ML VIAL (humuLIN R) SUBCUT PRN ×4 (06:20→21:38)
[2021-04-04] MEDS: hydrALAZINE HCL 25 MG TABLET PO SCH ×3 (06:24→21:46)
[2021-04-04 06:35] LABS: BASOPHILS % (AUTO) 0.4 % (0.0-2.0); EOSINOPHILS # (AUTO) 0.1 K/uL (0.0-0.4); EOSINOPHILS % (AUTO) 1.1 % (0.0-4.0); HEMATOCRIT 27.4 % (36-54); HEMOGLOBIN 9.1 g/dL (14.0-18.0); LYMPHOCYTES # (AUTO) 1.3 K/uL (1.0-5.5); LYMPHOCYTES % (AUTO) 17.4 % (20.5-51.5); MEAN CORPUSCULAR HEMOGLOBIN 32 pg (27-31); MEAN CORPUSCULAR HGB CONC 33 % (32-36); MEAN CORPUSCULAR VOLUME 95 fL (79.0-98.0); MONOCYTES # (AUTO) 0.7 K/uL (0.0-1.0); MONOCYTES % (AUTO) 9.4 % (1.7-9.3); NEUTROPHILS # (AUTO) 5.4 K/uL (1.8-7.7); NEUTROPHILS % (AUTO) 71.7 % (40.0-70.0); PLATELET COUNT (AUTO) 174 K/uL (130-430); RED BLOOD CELL COUNT(AUTO) 2.87 MIL/uL (4.2-6.2); RED CELL DISTRIBUTION WIDTH 23.1 % (9.0-15.0); WHITE BLOOD COUNT (AUTO) 7.5 K/uL (4.8-10.8)
[2021-04-04 07:08] LABS: ALBUMIN 1.9 g/dL (3.4-4.8); CALCIUM 7.8 mg/dL (8.4-11.0); CREATININE 5.45 mg/dL (0.55-1.30); POTASSIUM 3.9 mmol/L (3.5-5.1); TOTAL BILIRUBIN 0.3 mg/dL (0.0-1.0)
[2021-04-04 07:55] VITALS: BP_SYST 149
[2021-04-04] MEDS: ASPIRIN 81 MG TAB.CHEW PO SCH (08:39)
[2021-04-04] MEDS: OSELTAMIVIR PHOSPHATE 75 MG CAPSULE PO SCH ×2 (08:40→21:39)
[2021-04-04] MEDS: GABAPENTIN 100 MG CAPSULE PO SCH (08:40)
[2021-04-04] MEDS: ASCORBIC ACID 500 MG TABLET PO SCH ×2 (08:40→21:39)
[2021-04-04] MEDS: PANTOPRAZOLE SODIUM 40 MG TAB PO SCH (08:40)
[2021-04-04] MEDS: FUROSEMIDE 40 MG TABLET PO SCH (08:41)
[2021-04-04] MEDS: MECLIZINE HCL 25 MG TABLET (ANITVERT) PO SCH ×2 (08:41→21:39)
[2021-04-04] MEDS: LACTOBACILLUS RHAMNOSUS GG 1 CAP CAPSULE PO SCH ×2 (08:41→21:39)
[2021-04-04] MEDS: FOLIC ACID 1 MG TABLET PO SCH (08:41)
[2021-04-04] MEDS: CARVEDILOL 25 MG TABLET (COREG) PO SCH ×2 (08:42→21:40)
[2021-04-04] MEDS: CALCIUM CARBONATE/VITAMIN D3 1 TAB TABLET PO SCH ×2 (08:42→21:34)
[2021-04-04] MEDS: MEGESTROL ACETATE 400 MG/10 ML UDC PO SCH ×2 (08:42→21:34)
[2021-04-04] MEDS: DIVALPROEX SODIUM 500 MG TABLET( DEPAKOTE) PO SCH ×2 (08:44→21:39)
[2021-04-04] MEDS: PSYLLIUM HUSK 1 PKT PACKET PO SCH (08:49)
[2021-04-04] MEDS: HYDROcodone/ACETAMIN 5-325 MG TAB (NORCO/ VICODIN) PO PRN ×2 (10:54→22:06)
[2021-04-04 12:00] VITALS: BP_SYST 137
[2021-04-04 15:07] VITALS: BP_SYST 133
[2021-04-04] MEDS: cefTRIAXone 1 GM in D5W 50 ML IV SCH (17:02)
[2021-04-04] MEDS: 0.45% NACL 1,000 ML IV SCH (17:03)
[2021-04-04] MEDS: AZITHROMYCIN 500 MG in NS 250 ML IV SCH (18:03)
[2021-04-04 20:00] VITALS: BP_SYST 151
[2021-04-04] MEDS: AMITRIPTYLINE HCL 25 MG TABLET (ELAVIL) PO SCH (21:40)
[2021-04-04] MEDS: OLANZapine 10 MG TABLET PO SCH (21:45)
[2021-04-05] VITALS: BP_SYST 162
[2021-04-05] MEDS: INSULIN REGULAR, HUMAN 100 UNITS/ML, 10 ML VIAL (humuLIN R) SUBCUT PRN ×3 (05:56→22:00)
[2021-04-05] MEDS: hydrALAZINE HCL 25 MG TABLET PO SCH ×3 (06:06→22:02)
[2021-04-05] MEDS: OSELTAMIVIR PHOSPHATE 75 MG CAPSULE PO SCH ×2 (08:33→22:01)
[2021-04-05] MEDS: ASPIRIN 81 MG TAB.CHEW PO SCH (08:33)
[2021-04-05] MEDS: CARVEDILOL 25 MG TABLET (COREG) PO SCH ×2 (08:34→22:03)
[2021-04-05] MEDS: FUROSEMIDE 40 MG TABLET PO SCH (08:34)
[2021-04-05] MEDS ORDERED: cloNIDine HCL 0.1 MG TABLET PO PRN (08:45)
[2021-04-05] MEDS: DIVALPROEX SODIUM 500 MG TABLET( DEPAKOTE) PO SCH ×2 (09:00→22:02)
[2021-04-05] MEDS: PANTOPRAZOLE SODIUM 40 MG TAB PO SCH (09:00)
[2021-04-05] MEDS: CALCIUM CARBONATE/VITAMIN D3 1 TAB TABLET PO SCH ×2 (09:00→22:01)
[2021-04-05] MEDS: LACTOBACILLUS RHAMNOSUS GG 1 CAP CAPSULE PO SCH ×2 (09:00→22:01)
[2021-04-05] MEDS: MEGESTROL ACETATE 400 MG/10 ML UDC PO SCH ×2 (09:00→22:03)
[2021-04-05] MEDS: MECLIZINE HCL 25 MG TABLET (ANITVERT) PO SCH ×2 (09:00→22:01)
[2021-04-05] MEDS: FOLIC ACID 1 MG TABLET PO SCH (09:00)
[2021-04-05] MEDS: GABAPENTIN 100 MG CAPSULE PO SCH (09:00)
[2021-04-05] MEDS: ASCORBIC ACID 500 MG TABLET PO SCH ×2 (09:00→22:01)
[2021-04-05] MEDS: PSYLLIUM HUSK 1 PKT PACKET PO SCH (09:00)
[2021-04-05] MEDS: hydrALAZINE HCL 20 MG/ML VIAL IVP PRN (09:47)
[2021-04-05] MEDS: ONDANSETRON HCL 4 MG/2 ML VIAL IM PRN ×2 (10:13→14:49)
[2021-04-05 12:00] VITALS: BP_SYST 162
[2021-04-05 16:00] VITALS: BP_SYST 141
[2021-04-05] MEDS ORDERED: EPOETIN ALFA 10,000 UNITS/ML VIAL SUBCUT SCH (17:00)
[2021-04-05] MEDS: cefTRIAXone 1 GM in D5W 50 ML IV SCH (17:01)
[2021-04-05] MEDS: AZITHROMYCIN 500 MG in NS 250 ML IV SCH (17:01)
[2021-04-05 20:00] VITALS: BP_SYST 125
[2021-04-05] MEDS: AMITRIPTYLINE HCL 25 MG TABLET (ELAVIL) PO SCH (22:01)
[2021-04-05] MEDS: OLANZapine 10 MG TABLET PO SCH (22:06)
[2021-04-06 01:17] VITALS: BP_SYST 154
[2021-04-06] MEDS: INSULIN REGULAR, HUMAN 100 UNITS/ML, 10 ML VIAL (humuLIN R) SUBCUT PRN ×2 (06:01→12:10)
[2021-04-06] MEDS: hydrALAZINE HCL 25 MG TABLET PO SCH (06:02)
[2021-04-06 08:00] VITALS: BP_SYST 163
[2021-04-06] MEDS: ONDANSETRON HCL 4 MG/2 ML VIAL IM PRN (08:19)
[2021-04-06] MEDS: hydrALAZINE HCL 20 MG/ML VIAL IVP PRN (08:19)
[2021-04-06] MEDS: OSELTAMIVIR PHOSPHATE 75 MG CAPSULE PO SCH (09:49)
[2021-04-06] MEDS: MEGESTROL ACETATE 400 MG/10 ML UDC PO SCH (09:49)
[2021-04-06] MEDS: FOLIC ACID 1 MG TABLET PO SCH (09:50)
[2021-04-06] MEDS: ASPIRIN 81 MG TAB.CHEW PO SCH (09:50)
[2021-04-06] MEDS: CARVEDILOL 25 MG TABLET (COREG) PO SCH (09:50)
[2021-04-06] MEDS: ASCORBIC ACID 500 MG TABLET PO SCH (09:50)
[2021-04-06] MEDS: GABAPENTIN 100 MG CAPSULE PO SCH (09:51)
[2021-04-06] MEDS: LACTOBACILLUS RHAMNOSUS GG 1 CAP CAPSULE PO SCH (09:51)
[2021-04-06] MEDS: DIVALPROEX SODIUM 500 MG TABLET( DEPAKOTE) PO SCH (09:51)
[2021-04-06] MEDS: FUROSEMIDE 40 MG TABLET PO SCH (09:52)
[2021-04-06] MEDS: PANTOPRAZOLE SODIUM 40 MG TAB PO SCH (09:52)
[2021-04-06] MEDS: MECLIZINE HCL 25 MG TABLET (ANITVERT) PO SCH (09:52)
[2021-04-06] MEDS: PSYLLIUM HUSK 1 PKT PACKET PO SCH (10:26)
[2021-04-06] MEDS: CALCIUM CARBONATE/VITAMIN D3 1 TAB TABLET PO SCH (10:27)
[2021-04-06 13:04] VITALS: BP_SYST 148
== END 2021-04-06 13:50 | DRG 177 ==
LOC: SED 10:37 → STU 11:38
PROVIDERS: ADMIT Family Medicine; ATTEND Family Medicine
PROC: 5A1D70Z Performance of Urinary Filtration, Intermittent, Less than 6 Hours Per Day (ICD-10-PCS; principal; 2021-04-02)
PROC: 30233N1 Transfusion of Nonautologous Red Blood Cells into Peripheral Vein, Percutaneous Approach (ICD-10-PCS; 2021-04-03)
PROC: 5A1D70Z Performance of Urinary Filtration, Intermittent, Less than 6 Hours Per Day (ICD-10-PCS; 2021-04-05)
DX: J10.08 Influenza due to other identified influenza virus with other specified pneumonia (principal); N18.6 End stage renal disease; J15.20 Pneumonia due to staphylococcus, unspecified; J96.01 Acute respiratory failure with hypoxia; I12.0 Hypertensive chronic kidney disease with stage 5 chronic kidney disease or end stage renal disease; G40.909 Epilepsy, unspecified, not intractable, without status epilepticus; K21.9 Gastro-esophageal reflux disease without esophagitis; M06.9 Rheumatoid arthritis, unspecified; D50.9 Iron deficiency anemia, unspecified; I25.10 Atherosclerotic heart disease of native coronary artery without angina pectoris; E10.22 Type 1 diabetes mellitus with diabetic chronic kidney disease; E10.319 Type 1 diabetes mellitus with unspecified diabetic retinopathy without macular edema; H54.8 Legal blindness, as defined in USA; Z20.822 Contact with and (suspected) exposure to COVID-19; D63.1 Anemia in chronic kidney disease; Z99.2 Dependence on renal dialysis; Z79.899 Other long term (current) drug therapy; Z86.73 Personal history of transient ischemic attack (TIA), and cerebral infarction without residual deficits; Z91.040 Latex allergy status; Z79.82 Long term (current) use of aspirin
CPT/HCPCS: 36415; 36430; 36600; 70450-TC; 71045; 76376; 80048; 80053; 80164; 81000; 82140; 82803-TC; 82962; 83605; 84484; 85025; 85610-TC; 85730-TC; 86710; 86886; 86900; 86901; 86920; 87040-TC; 87081; 87086; 90935; 90937; 93005; 94640; 96365; 96368; 99291; G0378; G9035; J0360; J0456; J0696; J0885; J1815; J2405; J7050; J7060; J8597; P9021